=== PATIENT | male | born 1985 | race Caucasian/White ===

== ENCOUNTER → 2023-01-16 | Outpatient (CLI) | payer OTHER, SELFPAY ==
[2023-01-16 13:16] LABS: Hemoglobin A1c 5.5 % (3.8-5.6)
[2023-01-16 13:17] LABS: Estradiol 16.4 pg/mL; Follicle Stimulating Hormone 4.2 mIU/mL; Prolactin 8.2 ng/mL
[2023-01-20 19:07] LABS: Sex Hormone-binding Globulin 19.2 nmol/L (16.5-55.9); Testosterone, % Free 2.93 % (1.50-4.20); Testosterone, Free 9.17 ng/dL (5.00-21.00); Testosterone, Total 313 ng/dL (264-916)
== END | disposition home or self-care (01) ==
PROVIDERS: Referring Provider Nurse Practitioner Family; Visit Provider Nurse Practitioner Family
DX: E29.1 Testicular hypofunction (principal)
CPT/HCPCS: 36415; 82670; 83001; 83002; 83036; 84146; 84270; 84402; 84403

== ENCOUNTER → 2023-09-04 | Outpatient (CLI) | payer OTHER, SELFPAY ==
[2023-09-04 14:45] LABS: Hematocrit 48.9 % (40-54); Hemoglobin 16.1 g/dL (13.0-16.5)
[2023-09-04 15:06] LABS: AST(SGOT) 17 U/L (15-37); Alanine Aminotransfer ALT/SGPT 26 U/L (16-61); Albumin, Serum 3.5 g/dL (3.2-5.0); Alkaline Phosphatase 48 U/L (45-117); Anion Gap 7 (5-15); BUN 12 mg/dL (7-18); BUN/Creat Ratio 10.3 RATIO (10-20); Calcium,Total 8.5 mg/dL (8.5-10.1); Chloride 109 mmol/L (98-107); Cholesterol 165 mg/dL (200); Creatinine, Serum 1.17 mg/dL (0.70-1.30); EST Glomerular Filtration Rate 75 mL/min (>60); Est Glom Filt Rate - Afr Amer 90 mL/min (>60); Estradiol 34.8 pg/mL; Globulin 3.4 g/dL (2.2-4.2); Glucose 112 mg/dL (74-106); High Density Lipoprotein 33 mg/dL; Potassium 3.6 mmol/L (3.5-5.1); Protein, Total 6.9 g/dL (6.4-8.2); Sodium Level 141 mmol/L (136-145); Triglycerides 176 mg/dL; Very Low Density Lipoprotein 35 mg/dL (5-40)
[2023-09-11 13:07] LABS: Sex Hormone-binding Globulin 14.4 nmol/L (16.5-55.9); Testosterone, % Free 2.95 % (1.50-4.20); Testosterone, Free 20.44 ng/dL (5.00-21.00); Testosterone, Total 693 ng/dL (264-916)
== END | disposition home or self-care (01) ==
PROVIDERS: PCP Nurse Practitioner Family; Referring Provider Registered Nurse; Visit Provider Registered Nurse
DX: R35.0 Frequency of micturition (principal); R68.82 Decreased libido; R53.83 Other fatigue; E78.9 Disorder of lipoprotein metabolism, unspecified
CPT/HCPCS: 36415; 80053; 80061; 82670; 84270; 84402; 84403; 85014; 85018

== ENCOUNTER → 2024-06-10 | Outpatient (CLI) | payer OTHER, SELFPAY ==
--- NOTE | 2024-06-10 08:52 | CT_ITS ---
PROCEDURE: SINUS/FACIAL BONE (CTSI), 06/10/2024 REASON FOR EXAM: OTHER CHRONIC SINUSITIS TECHNIQUE: CT sinuses was performed without IV contrast. Multiplanar reformats were generated. RADIATION DOSE SUMMARY: CTDlvol: 33.06 mGy DLP: 871.04 mGycm One or more dose reduction techniques were used (e.g., Automated exposure control, adjustment of the mA and/or kV according to patient size, use of iterative reconstruction technique). COMPARISON: None FINDINGS: Operative changes: None. Paranasal sinuses: Trace mucosal thickening of 1-2 mm in the LEFT inferior frontal sinus and frontal recess. Trace mucosal thickening in the bilateral anterior sphenoid sinuses and sphenoethmoidal recesses, [id number], up to 2 mm. Mucous retention cysts and/or polyps in the bilateral maxillary sinuses up to 20 mm inferiorly on the RIGHT. Trace background mucosal thickening in the inferior maxillary sinuses up to 1-2 mm, [id number]. Outflow tracts: Minimal soft tissue opacification of the posterior most LEFT sphenoethmoidal recess. remaining outflow tracts are patent. Anatomic variants: Suspect a tiny accessory maxillary ostium along the medial wall of the RIGHT maxillary sinus.. S shaped nasal septal deviation, predominantly to the RIGHT anteriorly by roughly 6 mm contacting the lateral wall of the anterior RIGHT nasal cavity and slightly to the LEFT posteriorly by approximately 3 mm. Small leftward bony spur present posteriorly on the LEFT contacting the middle and inferior turbinates with some mild mass-effect. Relative hypertrophy of the LEFT inferior and middle turbinates with resultant narrowing of the LEFT nasal passages. Anna bullosa of the RIGHT middle turbinate. Small infraorbital air cells, LEFT larger than RIGHT. Dominant LEFT sphenoid sinus. Complete RIGHT and incomplete LEFT sphenoid sinus septation insertion near the bilateral bony carotid canals. Slight supraorbital pneumatization bilaterally. Olfactory fossa heights are relatively symmetric, however there is slight asymmetry of the fovea ethmoidalis, RIGHT higher than LEFT. Other: Cervical spinal degenerative changes at C1-C2. Few tiny lucencies along the roots of bilateral maxillary teeth. CT/Sinus/Facial Bone IMPRESSION: 1. Trace paranasal sinus disease as detailed. No findings to suggest acute sin usitis. 2. Minimal opacification of the posterior most LEFT sphenoid ethmoidal recess. Remaining outflow tracts are patent. 3. Few tiny lucencies along the roots of bilateral maxillary teeth may reflect minute periapical abscesses. Recommend dental evaulation. 4. Additional description as above. Reading Location: [id number]
== END | disposition home or self-care (01) ==
PROVIDERS: PCP Nurse Practitioner Family; Referring Provider Otolaryngology; Visit Provider Otolaryngology
DX: J32.8 Other chronic sinusitis (principal)
CPT/HCPCS: 70486